=== PATIENT | male | born 1955 | race Caucasian/White ===

== ENCOUNTER 2021-10-30 12:47 | Outpatient (REF) | payer BC, SELFPAY ==
[2021-11-01 21:47] LABS: Lyme Blot >10.00 index
[2021-11-02 19:22] LABS: A. Phagocytphilium DNA,RT-PCR NOT DETECTED (NOT DETECTED); Babesia Microti DNA, RT-PCR NOT DETECTED (NOT DETECTED); Borrelia Miyamotoi,DNA RT-PCR NOT DETECTED (NOT DETECTED); E.Chaffeensis DNA RT-PCR NOT DETECTED (NOT DETECTED); Lyme(Borrelia ssp)DNA RT-PCR NOT DETECTED (NOT DETECTED)
[2021-11-03 15:03] LABS: Source-Tick borne disease BLOOD
[2021-11-05 08:31] LABS: Lyme Abs Screen POSITIVE
[2021-11-05 14:47] LABS: 18 KD (IgG) Band NON-REACTIVE; 23 KD (IgG) Band NON-REACTIVE; 23 KD (IgM) Band REACTIVE; 28 KD (IgG) Band NON-REACTIVE; 30 KD (IgG) Band NON-REACTIVE; 39 KD (IgM) Band NON-REACTIVE; 39KD (IgG) Band REACTIVE; 41 KD (IgM) Band REACTIVE; 41KD (IgG) Band REACTIVE; 45 KD (IgG) Band NON-REACTIVE; 58 KD (IgG) Band NON-REACTIVE; 66 KD (IgG) Band NON-REACTIVE; 93 KD (IgG) Band NON-REACTIVE; Lyme IgG Blot Interp NEGATIVE (NEGATIVE); Lyme IgM Blot Interp POSITIVE (NEGATIVE)
== END 2021-10-30 12:48 | disposition home or self-care (01) ==
LOC: HO.HMGCLDS 12:47
PROVIDERS: PCP Internal Medicine; Visit Provider Physician Assistant
DX: R53.81 Other malaise (principal); R53.83 Other fatigue
CPT/HCPCS: 36415; 86617; 86618; 87798; 87801

== ENCOUNTER 2024-01-26 09:55 | Outpatient (AMB) | payer BC, SELFPAY ==
[2024-01-26 10:01] VITALS: BP 114/64; PULSE 60; O2SAT 99
--- NOTE | 2024-01-26 10:01 | MHC.OFFVIS ---
Vital Signs 01/26/24 10:01 Weight 172 lb BP 114/64 Blood Pressure Location Lt brachial Position Sitting Pulse 60 Pulse Source Pulse Oximeter Pulse Oximetry (%) 99 Oxygen Delivery Method Room Air Intake Visit Reasons: Joint pain Intake Note: Patient is here as an external referral from his PCP for joint pain, patient states he did have lyme disease in the past about 3 years ago. Allergies Seasonal Allergies Allergy (Mild, Verified 01/26/24 10:07) Itchy Eyes Medication List - Last Reconciled 01/26/24 by Tanesha Romero MD dorzolamide-timolol 22.3-6.8 mg/mL ophthalmic (eye) HPI Comments Details: Patient is a 68-year-old male with glaucoma who presents for evaluation of left shoulder pain. Of note patient was diagnosed with Lyme disease in 2021 after presenting with erythema migrans type rash, fever, polyarthralgias, and fatigue. He was given a 14 day course of doxycycline which he states that he completed. Has not had any joint issues since that time. Notes that over the summer (about 3 months or so ago) he started having left shoulder pain particularly worse at night especially when he is trying to change positions in bed. Denies any swelling to the shoulder. He denies any prolonged morning stiffness. Denies any other joint involvement. Denies knee pain or swelling. Does recall getting another tick bite in the summer but he removed the tick immediately. Denies trauma. He does do extensive work in his garden. [facility] Medical History (Updated 01/26/24 @ 10:44 by Tanesha Romero MD) Chronic left shoulder pain Prostatitis Polyp of colon Lyme disease Surgical History (Updated 01/18/24 @ 12:14 by Dolores Cosme CMA) Hx of umbilical hernia repair S/P laparoscopic hernia repair Hx of colonoscopy Family History (Updated 01/18/24 @ 12:17 by Dolores Cosme CMA) Father Myocardial infarction Hx of CABG Brother Hypertension Mother Hypertension Social History Patient Tobacco Use Status: Former Tobacco user Review of Systems Const Details: Review of Systems Constitutional: Denies fever, chills, weight loss ENT: Denies vision changes, eye pain or eye redness, dental caries, dry mouth GI: Denies nausea, vomiting, diarrhea, abdominal pain, change in BM Pulm: Denies SOB, BRUNO, hemoptysis, wheezing Cards: Denies chest pain, palpitations Skin: Denies Raynaud's, rash, nail changes, photosensitivity, [employer] MANAGER: Denies headaches, weakness, paresthesias, recurrent falls MSK: as per HPI All other systems reviewed and are unremarkable except noted above Physical Exam Vital Signs: Last Vital Signs Pulse 60 01/26/24 10:01 BP 114/64 01/26/24 10:01 Pulse Ox 99 01/26/24 10:01 Oxygen Delivery Method Room Air 01/26/24 10:01 Const Other: Physical Examination Patient well appearing and in no apparent painful distress Constitutional Mucous membranes pink and moist patient alert and cooperative HEENT Conjunctiva and sclera clear. ?Pupils equal round and reactive to light. ?No lymphadenopathy. ?Normal dentition. Respiratory System Normal respiratory effort and able to speak in complete sentences. ?Clear to auscultation bilaterally. ?No crackles, rales, rhonchi, wheezes heard. Cardiac System Regular rate and rhythm. ?S1 and S2 heard no murmurs. ?Radial pulses intact bilaterally MSK No deformity, swelling, abnormalities noted to bilateral hands. ?No evidence of synovitis. ?Able to move all joints with full range of motion, without limitation. Full range of motion active and passive of the right and left shoulder. No tenderness to palpation noted. Hands with Heberden's nodes especially on the 3rd DIPs. Bilateral 3rd MCP fullness without warmth or tenderness to palpation. Results Reviewed Results Reviewed: IgM positive for Lyme in 2021 Assessment & Plan Assessment & Plan (1) Chronic left shoulder pain: Code(s): M25.512 - Pain in left shoulder; G89.29 - Other chronic pain Category: Medical Plan: #Left Shoulder Pain Patient with left shoulder pain. Pain is currently resolved on examination. Low suspicion for Lyme associated arthritis. Given that he has a history of Lyme disease any test for Lyme serology would be positive. In order for a definitive diagnosis of Lyme arthritis fluid would have to be removed from a joint and that sent for PCR testing. However since he does not have any current or history of effusion to any joint unlikely that this is due to Lyme. We will still check x-rays of the left shoulder. This could potentially be a rotator cuff issue given he does a lot of strenuous work in his garden. Advised on signs and symptoms to be aware of for Lyme arthritis including bilateral or unilateral knee pain or swelling. Hand pain or swelling. Patient can be seen p.r.n. we will call with results of x-ray. If still having pain to the shoulder we will send a script for physical therapy. Plan I spent 30 minutes reviewing the record and labs, seeing the patient, discussing the treatment plan and documenting in the medical record Orders: Orders XR shoulder RT min 2V Today M25.511 - Pain in right shoulder Coding Level of Care Code New Pt Level 3 (54640) Diagnoses Chronic left shoulder pain M25.512; G89.29
== END 2024-01-26 10:31 | disposition home or self-care (01) ==
PROVIDERS: PCP Internal Medicine; Visit Provider Student in an Organized Health Care Education/Training Program
DX: M25.512 Pain in left shoulder (principal); G89.29 Other chronic pain
CPT/HCPCS: 99203

== ENCOUNTER → 2024-01-26 09:55 | Outpatient (BNVA) | payer BC, SELFPAY | PROVIDERS: PCP Internal Medicine; Visit Provider Student in an Organized Health Care Education/Training Program ==

== ENCOUNTER 2024-02-01 10:36 | Outpatient (REF) | payer BC, SELFPAY | END 2024-02-01 10:37 | disposition home or self-care (01) | LOC: HO.XRAY 10:36 | PROVIDERS: PCP Internal Medicine; Visit Provider Student in an Organized Health Care Education/Training Program | DX: Z13.89 Encounter for screening for other disorder (principal) ==

== ENCOUNTER 2024-02-10 10:22 | Outpatient (REF) | payer BC, SELFPAY | END 2024-02-10 10:23 | disposition home or self-care (01) | LOC: HO.XRAY 10:22 | PROVIDERS: PCP Internal Medicine; Visit Provider Student in an Organized Health Care Education/Training Program | DX: M25.511 Pain in right shoulder (principal); M25.512 Pain in left shoulder | CPT/HCPCS: 73030 ==

== ENCOUNTER 2024-09-26 09:16 | Outpatient (AMB) | payer MEDICARE, SELFPAY ==
--- NOTE | 2024-09-26 09:16 | MHC.OFFWIV ---
Intake Vital Signs 09/26/24 09:17 Height 5 ft 10 in Weight 173 lb BMI 24.8 BP 130/84 Blood Pressure Location Lt brachial Position Sitting Pulse 69 Pulse Source Pulse Oximeter Temp 97.7 F Temp Source Oral Pulse Oximetry (%) 96 Oxygen Delivery Method Room Air Intake Visit Reasons: EP RT ear infection Intake Note: Pt presents to the office today for c/o right ear being blocked x3 weeks. Pt states he went to another urgent care in August for the same issue. Pt states he was prescribed augmentin. Pt states he took the course of the antibiotic and states it didnt help. Patient Tobacco Use Status: Former Tobacco user Allergies Seasonal Allergies Allergy (Mild, Verified 09/26/24 09:20) Itchy Eyes HPI HPI Comments History of Present Illness Details History - The patient is a 69-year-old male presenting with persistent ear congestion and hearing issues following a recent ear infection. - The patient was treated approximately three weeks ago at another clinic for a sinus and ear problem, initially prescribed amoxicillin, which was completed two weeks ago. - Despite treatment, the right ear remains plugged, with no significant sinus pain, sneezing, or coughing reported. - The patient reports a history of mild seasonal allergies but does not take regular allergy medication. - The patient attempted home wax removal with irrigation without relief. - The patient has been using [id number] Fluticasone and saline nasal spray as directed, once daily for Fluticasone and multiple times for saline. Physical Exam General: Cooperative, healthy appearing, comfortable, no acute distress and well developed Orientation: Patient oriented x3 Limitations: visually impaired Head: Normal to inspection Ears: External ears normal bilaterally, right TM with a hole and fluid present, left TM normal Face and sinus: Normal facial exam Neck: Normal visual inspection and Yes full ROM Respiratory: Normal respiratory effort and able to speak in complete sentences. Skin: No rashes or lesions noted Neuro: Patient oriented x3 Extremities: normal to inspection [facility] Medical History (Updated 09/26/24 @ 09:38 by Carolyn Adler PA-C) Chronic left shoulder pain Prostatitis Polyp of colon Lyme disease Surgical History (Updated 01/18/24 @ 12:14 by Dolores Cosme CMA) Hx of umbilical hernia repair S/P laparoscopic hernia repair Hx of colonoscopy Family History (Updated 01/18/24 @ 12:17 by Dolores Cosme CMA) Father Myocardial infarction Hx of CABG Brother Hypertension Mother Hypertension Social History Patient Tobacco Use Status: Former Tobacco user Review of Systems Const All systems reviewed & are unremarkable except as noted in HPI and below Physical Exam Vital Signs: Last Vital Signs Temp 97.7 F 09/26/24 09:17 Pulse 69 09/26/24 09:17 BP 130/84 09/26/24 09:17 Pulse Ox 96 09/26/24 09:17 Oxygen Delivery Method Room Air 09/26/24 09:17 BMI result Body Mass Index 24.8 Assessment & Plan Assessment & Plan (1) Rupture of right tympanic membrane: Code(s): H72.91 - Unspecified perforation of tympanic membrane, right ear Plan: 1. Tympanic Membrane Perforation - Continue using Fluticasone nasal spray to help reduce fluid in the middle ear. - Avoid ear irrigation due to the perforation. - Consider using Benadryl at night as a drying agent. - Avoid swimming and flying to prevent further complications. - Use earplugs or cotton to protect the ear during hair washing. Patient was informed and verbally consented to the use of an ambient scribe for clinic note documentation during this visit. Coding Level of Care Code New Pt Level 3 (42442) Diagnoses Rupture of right tympanic membrane H72.91
[2024-09-26 09:17] VITALS: BP 130/84; PULSE 69; TEMP 36.5; O2SAT 96; BMI 24.8
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
== END 2024-09-26 09:58 | disposition home or self-care (01) ==
PROVIDERS: PCP Internal Medicine; Visit Provider Physician Assistant
DX: H72.91 Unspecified perforation of tympanic membrane, right ear (principal)

== ENCOUNTER → 2024-09-26 09:16 | Outpatient (BNVA) | payer MEDICARE, SELFPAY | PROVIDERS: PCP Internal Medicine; Visit Provider Physician Assistant | DX: H72.91 Unspecified perforation of tympanic membrane, right ear (principal) | CPT/HCPCS: 99202 ==

== ENCOUNTER 2024-10-20 08:36 | Outpatient (AMB) | payer MEDICARE, SELFPAY ==
[2024-10-20 08:39] VITALS: BP 140/70; PULSE 64; TEMP 36.6; O2SAT 97; BMI 24.3
--- NOTE | 2024-10-20 08:39 | MHC.OFFWIV ---
Intake Vital Signs 10/20/24 08:39 Height 5 ft 10 in Weight 169 lb 4 oz BMI 24.3 BP 140/70 H Blood Pressure Location Rt brachial Position Sitting Pulse 64 Pulse Source Pulse Oximeter Temp 97.8 F Temp Source Oral Pulse Oximetry (%) 97 Oxygen Delivery Method Room Air Intake Visit Reasons: EP Rt ear has not gotten better 4wks Intake Note: Patient states he feel like he has swimmers ear and it is not getting better nor is it worse, Since he was last seen here Patient Tobacco Use Status: Former Tobacco user Copier Operator Required: No Allergies Seasonal Allergies Allergy (Mild, Verified 10/20/24 08:42) Itchy Eyes Do you need a note to return to daycare/school/sports/work: No HPI HPI Comments History of Present Illness Details Patient is a 69yo M who presents to office with continual ear pain Was seen approx 1 month ago on 09/26 for TM perforation R ear He said it feels like it is clogged No pain, 0/10. Minimal quick ache but resolved He said it started back in August with sinus issues; all of these which have improved Still taking the Flonase and Benadryl prn at night Has a PCP at [facility] and has been unable to be seen He is legally blind and does not want to lose his hearing too He said he has not gotten worse, but has not gotten better No other complaint [facility] Medical History (Updated 09/26/24 @ 09:38 by Carolyn Adler PA-C) Chronic left shoulder pain Prostatitis Polyp of colon Lyme disease Surgical History (Updated 01/18/24 @ 12:14 by Dolores Cosme CMA) Hx of umbilical hernia repair S/P laparoscopic hernia repair Hx of colonoscopy Family History (Updated 01/18/24 @ 12:17 by Dolores Cosme CMA) Father Myocardial infarction Hx of CABG Brother Hypertension Mother Hypertension Social History Patient Tobacco Use Status: Former Tobacco user Review of Systems Const Denies chills, Denies fatigue and Denies fever(s) Eyes Reports blind spots (legally blind) ENT Denies dizziness, Denies ear discharge, Denies otalgia (R ear feels clogged/blocked), Denies post nasal drip and Denies sore throat Resp Denies cough Neuro Denies dizziness Endo Denies fatigue Physical Exam Vital Signs: Last Vital Signs Temp 97.8 F 10/20/24 08:39 Pulse 64 10/20/24 08:39 BP 140/70 H 10/20/24 08:39 Pulse Ox 97 10/20/24 08:39 Oxygen Delivery Method Room Air 10/20/24 08:39 BMI result Body Mass Index 24.3 General: Non-toxic, NAD. Speaking full sentences. Skin: Warm dry throughout Eye: EOMI HENT: Airway patent. Uvula midline. No pharyngeal erythema or edema. No SOLAR SALES ESTIMATOR. No external ear edema or erythema. No Mastoid ttp or erythema billarerally. Bilateral canals clear. L TM non-erythematous, non-bulging. No TM perforation or hemotympanum noted. R TM + dark red scabbed lesion to superior/posterior aspect of membrane. Unable to see any other visible perforation. No TM erythema or fluid noted. No drainage. Neurology: Alert. No aphasia or facial droop. Gait without abnormality Psych: Good mood and affect Assessment & Plan Assessment & Plan (1) Rupture of right tympanic membrane: Code(s): H72. - Unspecified perforation of tympanic membrane, right ear Plan: Patient seen and evaluated. Has healing R TM perforation No sign of infection Discussed with patient there is various stages of healing and he may have pedament damage but should see ENT He does not want to see a amistad provider given by his PCP so I sent referral to [facility]. Discussed d/c benadryl Flonase prn for allergy symptoms F/U with ENT and PCP Patient gave verbal understanding and had no additional questions or concerns at time of discharge All questions answered Orders: Referrals Ear/Nose/Throat Referral H72. - Unspecified perforation of tympanic membrane, right ear Coding Level of Care Code Est Pt Level 3 (27254) Diagnoses Rupture of right tympanic membrane H72.
--- OUTSIDE RECORDS SUMMARY | 2024-10-20 08:46 | XMS_ITS | Clinical Summary ---
Author Organization [facility] Address [address] [place] [address] Phone Care Team Providers Care Library Customer Service Clerk Name Role Phone Sulaiman Cheng MD Primary Care Provider [phone] Allergies No known active allergies Medications brimonidine [...] Assessment & Plan (06/17/2024 10:57 AM EST): Immunizations Name Administration Dates Next Due Influenza, Unspecified 02/09/2023,01/11/2021 [employer] SARS-CoV-2 COVID-19, mRNA, LNP-S, preservative free 07/12/2020 [...] 60 06/17/2024 10:29 AM EST Temperature 35.9 C (96.6 F) 06/17/2024 10:29 AM EST Respiratory Rate 20 06/17/2024 10:29 AM EST [...] 11:00 AM EDT Office Visit Adult Medicine [address] [address] Sulaiman Cheng MD [address] [place] [id number] Health Maintenance Due Date Last Done Comments Pneumococcal Vaccine: 50+ Years (1 of 1 - PCV) 2007 Social Influencers of Health Screening 03/22/2022 COVID-19 Vaccine ( season) 2023 01/31/2023, 03/20/2021, 07/12/2020, Additional history exists Influenza Vaccine (#1) 2024 , 02/09/2023, 01/31/2023, Additional history exists Depression Screening 06/17/2025 06/17/2024 [...] Aortic Aneurysm (AAA) Screen Completed 08/27/2022, 08/27/2022 HIB Vaccines Aged Out No longer eligi [...] Maintenance Results * COLONOSCOPY Anesthesia - MAC; [facility] ENDOSCOPY (05/24/2024 11:03 AM EST) Anatomical Region Laterality Modality Endoscopy 05/24/2024 10:3 8 AM EST Impressions 05/24/2024 11:09 AM EST - One 15 mm polyp in the cecum, removed with a hot snare and removed using injection-lift and a cold snare. Resected and retrieved. Clip (MR conditional) was placed. Clip psychology fellow: [facility] [employer] [facility] [employer] [facility]. - One 5 mm polyp in the ascending colon, removed with a cold snare. Resected and retrieved. - Diverticulosis in the sigmoid colon and in the descending colon. - Internal hemorrhoids. Recommendation: - Await pathology results. - Repeat colonoscopy for surveillance based on pathology results. Narrative 05/24/2024 11:09 AM EST [facility] GI Patient Name: David Black Procedure Date: 05/24/2024 10:38 AM Date of : 1955 Age: 69 Gender: Male Note Status: Finalized Attending MD: Ivy Silva MD, Procedure Date No Time: 05/24/2024 Procedure: Colonoscopy Indications: High risk colon cancer surveillance: Personal history of colonic polyps, Last colonoscopy: February 2019 Providers: Ivy Silva MD Referring MD: Ivy Silva MD Medicines: Monitored Anesthesia Care Complications: No immediate complications. Estimated blood loss: Minimal. Estimated Blood Loss: Estimated blood loss was minimal. Procedure: Pre-Anesthesia Assessment: - Prior to the procedure, a History and Physical was performed, and patient medications and allergies were reviewed. The patient is competent. The risks and benefits of the procedure and the sedation options and risks were discussed with the patient. All questions were answered and informed consent was obtained. Patient identification and proposed procedure were verified by the physician, the nurse, the esthetic dermatologist and the electronic engineering technician in the pre-procedure area in the endoscopy suite. Mental Status Examination: normal. Airway Examination: normal oropharyngeal airway and neck mobility. Respiratory Examination: clear to auscultation. CV Examination: normal. Prophylactic Antibiotics: The patient does not require prophylactic antibiotics. Prior Anticoagulants: The patient has taken no anticoagulant or antiplatelet agents. ASA Grade Assessment: II - A patient with mild systemic disease. After reviewing the risks and benefits, the patient was deemed in satisfactory condition to undergo the procedure. The anesthesia plan was to use monitored anesthesia care (MAC). Immediately prior to administration of medications, the patient was re-assessed for adequacy to receive sedatives. The heart rate, respiratory rate, oxygen saturations, blood pressure, adequacy of pulmonary ventilation, and response to care were monitored throughout the procedure. The physical status of the patient was re-assessed after the procedure. After I obtained informed consent, the scope was passed under direct vision. Throughout the procedure, the patient's blood pressure, pulse, and oxygen saturations were monitored continuously. The Olympus Colonoscope was introduced through the anus and [...] injection-lift technique using a cold snare. Resection and retrieval were complete. Estimated blood loss was minimal. To prevent bleeding after the polypectomy, one hemostatic clip was successfully placed (MR conditional). Clip psychology fellow: [facility] [employer] [facility]. There was no bleeding at the end of the procedure. Estimated blood loss was minimal. A 5 mm polyp was found in the ascending colon. The polyp was sessile. The polyp was removed with a cold snare. Resection and retrieval were complete. Estimated blood loss was minimal. Multiple small-mouthed diverticula were found in the sigmoid colon and descending colon. Internal hemorrhoids were found during retroflexion. The hemorrhoids were Grade I (internal hemorrhoids that do not prolapse). Procedure Code(s): --- Professional --- 01629, Colonoscopy, flexible; with removal of tumor(s), polyp(s), or other lesion(s) by snare technique [id number], Colonoscopy, flexible; with directed submucosal injection(s), any substance Diagnosis Code(s): --- Professional --- D12.0, Benign neoplasm of cecum D12.2, Benign neoplasm of ascending colon CPT copyright 2020 [employer]. All rights reserved. The codes documented in this report are preliminary and upon brake operator helper review may be revised to meet current compliance requirements. Ivy Silva MD 05/24/2024 11:09:25 AM This report has been signed electronically.Ivy Silva MD Number of Addenda: 0 Note Initiated On: 05/24/2024 10:38 AM Scope Withdrawal Time: 0 hours 16 minutes 41 seconds Scope In: 10:43:07 AM Scope Out: 11:03:20 AM Endoscopy Department at [facility] - [address] [place] [phone] Procedure Note Ivy Silva MD - 05/24/2024 [facility] GI Patient Name: David Black [...] the physician, the nurse, theanesthetist and the electronic engineering technician in the pre-procedure area in the [...] clip was successfully placed (MR conditional). Clip psychology fellow: [facility] [employer] [facility]. There was nobleeding at the end of [...] not prolapse). Procedure Code(s): --- Professional --- 42941, Colonoscopy, flexible; with removal of tumor(s), polyp(s), or other lesion(s) by snare technique [id number], Colonoscopy, flexible; with directedsubmucosal injection(s), any substance Diagnosis Code(s): --- Professional --- D12.0, Benign neoplasm of cecum D12.2, Benign neoplasm of ascending colon CPT copyright 2020 [employer]. All rights reserved. The codes documented in this report are preliminary and upon brake operator helper reviewmay be revised to meet current compliance requirements. Ivy Silva MD 05/24/2024 11:09:25 AM This report has been signed electronically.Ivy Silva MD Number of Addenda: 0 Note Initiated On: 05/24/2024 10:38 AM Scope Withdrawal Time: 0 hours 16 minutes 41 seconds Scope In: 10:43:07 AM Scope Out: 11:03:20 AM Endoscopy Department at [facility] - [address] [place] [phone] IMPRESSION: - One 15 mm polyp in the cecum, removed with a hot snare and removed using injection-lift and a cold snare. Resected and retrieved. Clip (MRconditional) was placed. Clip psychology fellow: [facility] [employer] [facility]. - One 5 mm polyp in the ascending colon, removedwith a cold snare. Resected and retrieved. - Diverticulosis in the sigmoid colon and in the descending colon. - Internal hemorrhoids. Recommendation: - Await pathology results. - Repeat colonoscopy for surveillance based on pathology results. Ivy Silva MD GI~PROCEDURE ORDERABLES Fin al [...] an abdominal aortic aneurysm. Proximal aorta measures 2.7 cm in maximal diameter. Mid aorta measures 1.8 cm. Distal aorta measures 1.8 cm. Proximal right common iliac artery measures 1.2 cm. Proximal left common iliac artery measures 1.3 cm. IMPRESSION: IMPRESSION: No evidence of an abdominal aortic aneurysm. POS - [id number] Procedure Note Marie Samayoa MD - 05/18/2023 [...] of an abdominal aortic aneurysm. POS - [id number] Sulaiman Cheng MD IMG US PROCEDURES Final Result * Hepatitis C Screening (05/19/2017) Hepatitis C Screening abstracted Historical Provider HEALTH MAINTENANCE Final Result from Last 3 Months or Most Recently Relevant to Health Maintenance Insurance [employer] - [place] MEDICARE ADVANTAGE Care Teams Library Customer Service Clerk Relationship Specialty Start Date End Date Sulaiman Cheng MD [address] [place] [address] PCP - General 04/21/08
== END 2024-10-20 09:29 | disposition home or self-care (01) ==
PROVIDERS: PCP Internal Medicine; Visit Provider Physician Assistant
DX: H72.91 Unspecified perforation of tympanic membrane, right ear (principal)

== ENCOUNTER → 2024-10-20 08:36 | Outpatient (BNVA) | payer MEDICARE, SELFPAY | PROVIDERS: PCP Internal Medicine; Visit Provider Physician Assistant | DX: H72.91 Unspecified perforation of tympanic membrane, right ear (principal) | CPT/HCPCS: 99212 ==